=== PATIENT | male | born 1990 | race Caucasian/White ===

== ENCOUNTER 2016-10-05 23:11 | Emergency (ER) | payer BC ==
[~2016-10-05] VITALS: Ht 162.6 cm; Wt 74.6 kg
[2016-10-05 23:54] LABS: MCHC 35.2 G/DL (30.0-36.0); MCV 85.1 FL (86-99); MEAN PLAT.VOLUME 10.3 uM^3 (9.0-12.4); PLATELET COUNT 282 K/uL (156-360); RBC DIS.WIDTH-CV 13.2 % (11.8-14.6); RBC DIS.WIDTH-SD 41.1 % (39-53); RED BLOOD COUNT 5.64 M/uL (4.00-5.50); WHITE BLOOD COUNT 11.5 K/uL (4.1-10.2)
[2016-10-06 00:15] LABS: D-DIMER ELISA 0.25 mg/L FEU (< 0.57)
[2016-10-06 00:17] LABS: TROP-I INTERPRETATION NEGATIVE; TROPONIN-I < 0.01 ng/mL (0.0-0.30)
[2016-10-06 00:25] LABS: CHLORIDE 103 mEq/L (99-109); POTASSIUM 3.5 mEq/L (3.7-5.4); SODIUM 136 mEq/L (136-147)
[2016-10-06 00:27] LABS: GLUCOSE 107 mg/dL (70-99)
[2016-10-06 00:28] LABS: ANION GAP 8 MEQ/L (2-14)
[2016-10-06 00:29] LABS: TOTAL BILIRUBIN 0.5 mg/dL (0.0-1.0)
[2016-10-06 00:31] LABS: ALKALINE PHOSPHATASE 83 IU/L (3-129); GFR ESTIMATE (CALCULATED) > 59 mL/min/
[2016-10-06 00:32] LABS: DIRECT BILIRUBIN 0.2 mg/dL (0.0-0.3); UREA NITROGEN (BUN) 8 mg/dL (9-23)
[2016-10-06 00:34] LABS: LIPASE 15 U/L (1.0-51.0)
[2016-10-06] MEDS ORDERED: NAPROSYN500 MG PO (01:08)
[2016-10-06 01:30] VITALS: BP 115/64
== END 2016-10-06 01:30 | disposition home or self-care (01) ==
LOC: EME 23:11
PROVIDERS: Emergency Medicine
DX: R07.89 Other chest pain (principal); E86.0 Dehydration; F17.200 Nicotine dependence, unspecified, uncomplicated; Z88.8 Allergy status to other drugs, medicaments and biological substances
CPT/HCPCS: 71020; 80048; 80076; 83690; 84484; 85027; 85379; 93005